=== PATIENT | male | born 1995 | race Caucasian/White ===

== ENCOUNTER 2023-09-13 11:27 | Emergency (ER) | payer SELFPAY ==
[2023-09-13] VITALS (7 sets, daily range): BP systolic 120–139; BP diastolic 77–92; PULSE 67–87; RESP 18–19; TEMP 36.6–36.9; O2SAT 97–99; BMI 29.2
--- NOTE | 2023-09-13 11:37 | ED_ITS ---
Discharge Plan Disposition Patient Disposition: Home, Self-Care Condition: Good Referrals Follow up/Referrals: Provider,Referral, MD [Primary Care Provider] - See instructions Activity Restrictions/Add. Instructions Additional Instructions/Restrictions: As we discussed, you have a small fracture of the end of your bone in your ankle called your tibia. Please wear the boot and do not bear weight on that foot. Please follow-up with the orthopedic surgeon. We have provided you a CD with the imaging. Please return with any new or worsening symptoms. Clinical Impressions Clinical Impression: Fracture of distal end of left tibia Instructions Patient Instructions: DI for Ankle Fracture, DI for Fracture Discharge ED Provider: Joel Torres General Adult HPI General Chief complaint: Extremity Injury, Lower Stated complaint: AO-pain and swelling in ankle Time Seen by Provider: 09/13/23 11:37 History of Present Illness HPI narrative: The patient presents with a chief complaint of pain in the left leg after falling down a steep hill. The patient reports having been at an [employer]nb and was coming out to see the kids when the fall occurred. The patient has experienced tingling in the toes, mainly on the inside of the foot, and describes it as pins and needles. The patient denies any back pain or head injury during the fall. The patient has a history of a previous injury to the same ankle, where the tendons were pulled off the bone, resulting in an avulsion fracture. The patient has not been able to bear weight on the injured leg since the fall. The patient has taken 1000 mg of Tylenol for pain management but has not requested any additional pain relief at this time. The patient has a medical history of hypertension and takes blood pressure medication daily. The patient is from out of town and was supposed to leave [place] on the day of the visit. Please note that above description of symptoms, in this electronic medical record under categorization of recalled from ER triage doctor by RN are reflective of an initial nursing assessment, however, is not reflective of my full history and physical exam that was personally taken and clarified. Consequentially, this preceding description of symptoms, which may include the patient's categorized chief complaint in the EMR, do not reflect my personal clinical impression, and the ultimate description of history of present illness and patient stated complaints should be deferred to this section of the note. Unless stated otherwise or congruent with this section of the note, additional signs, symptoms, or incongruence should be interpreted as inaccurate with my clinical impression. Related Data Allergies Allergy/AdvReac Type Severity Reaction Status Date / Time Penicillins Allergy Unknown Verified 09/13/23 12:03 [facility] Disclaimer: The information contained in this section may have been updated after the patient was seen, as this information can be updated by other users. Social History Smoking Status: Former smoker alcohol intake: former current occupational status: other Travel in the last 8 weeks: None ROS Obtained: Yes other As per HPI Physical Exam General General appearance: alert and in no apparent distress Head Head exam: atraumatic and normocephalic Eye Eye exam: Present normal appearance Neck Neck exam: Present normal inspection Chest Chest inspection: Present normal inspection and symmetric chest wall rise Respiratory Respiratory exam: Present normal lung sounds bilaterally; Absent respiratory distress Cardiovascular Cardiovascular exam: Present regular rate and normal rhythm Abdominal Exam Abdominal exam: Present soft Neurological Exam Neurological exam: Present alert and oriented X3 Psychiatric Psychiatric exam: Present normal affect and normal mood Skin Skin exam: Present warm and dry Medical Decision Making Medical Records Medical records reviewed: Yes I reviewed the patient's medical records. Dionisio Inquiry Pt receiving controlled substance: No Vital Signs: 09/13/23 11:29 09/13/23 11:43 09/13/23 11:45 Temperature 98.4 F Temperature Source Oral Pulse Rate 68 67 Pulse Rate [Right] 87 Respiratory Rate 19 Blood Pressure 130/79 127/83 Blood Pressure [Right Arm] 130/79 Blood Pressure Mean [Right Arm] 96 Blood Pressure Source [Right Arm] Automatic Cuff 02 Sat by Pulse Oximetry 98 97 99 Oxygen Delivery Method Room Air 09/13/23 12:00 09/13/23 12:15 09/13/23 12:30 Temperature Temperature Source Pulse Rate 80 76 80 Pulse Rate [Right] Respiratory Rate Blood Pressure 121/83 128/77 120/82 Blood Pressure [Right Arm] Blood Pressure Mean [Right Arm] Blood Pressure Source [Right Arm] 02 Sat by Pulse Oximetry 97 98 97 Oxygen Delivery Method 09/13/23 15:18 Temperature 98 F Temperature Source Pulse Rate 78 Pulse Rate [Right] Respiratory Rate 18 Blood Pressure 139/92 H Blood Pressure [Right Arm] Blood Pressure Mean [Right Arm] Blood Pressure Source [Right Arm] 02 Sat by Pulse Oximetry Oxygen Delivery Method Room Air Orders (Tests/Meds): ORDERS Category Date Time Status XR ankle LT min 3V Stat Exams 09/13/23 11:38 Completed XR foot LT min 3V Stat Exams 09/13/23 11:38 Completed XR tibia fibula LT 2V Stat Exams 09/13/23 11:38 Completed Medical Decision Narrative: Patient with history and exam per above presenting for evaluation of ankle pain Diagnoses considered include fracture, sprain, no clinical evidence of vascular injury, nerve injury, or compartment syndrome. ED workup and treatment included: ORDERS Category Date Time Status XR ankle LT min 3V Stat Exams 09/13/23 11:38 Completed XR foot LT min 3V Stat Exams 09/13/23 11:38 Completed XR tibia fibula LT 2V Stat Exams 09/13/23 11:38 Completed Imaging was independently visualized and interpreted by me, significant for distal tibial fracture. Please refer to radiology report for full details. My clinical impression at this time is most consistent with closed distal tibial fracture. As patient lives out of town, after shared decision making he will elect to follow-up with his home orthopedic surgeon. I discussed my clinical impression with patient and answered all questions. At this time, the evidence for any other entities in the differential is insufficient to warrant any further testing or ED observation. This was explained to the patient. The patient was advised that persistent or worsening symptoms require further evaluation. I confirmed the patient's understanding of this discussion. Critical Care Critical Care Time Critical Care Time: No
--- NOTE | 2023-09-13 11:38 | XR_ITS ---
FINAL REPORT CLINICAL HISTORY: Left ankle pain after fall COMPARISON: None FINDINGS: LEFT ANKLE Three views demonstrate a nondisplaced fracture of the posterior distal tibia. The visualized joint spaces are normally aligned. Lateral soft tissue swelling is noted. IMPRESSION: Nondisplaced fracture posterior distal tibia with soft tissue swelling. Reviewed, Interpreted and Dictated by Get Orellana III, MD Transcribed by Joellen Yap Authenticated and [facility]
--- NOTE | 2023-09-13 11:38 | XR_ITS ---
FINAL REPORT CLINICAL HISTORY: Left lower leg pain after fall COMPARISON: None FINDINGS: Two views of the left tibia/fibula were obtained. There is a nondisplaced fracture of the posterior distal tibia. The joint spaces are intact. Lateral soft tissue swelling is noted about the ankle. IMPRESSION: Nondisplaced fracture posterior distal tibia with soft tissue swelling. Reviewed, Interpreted and Dictated by Get Orellana III, MD Transcribed by Joellen Yap Authenticated and [facility]
--- NOTE | 2023-09-13 11:38 | XR_ITS ---
FINAL REPORT CLINICAL HISTORY: Left foot pain after fall COMPARISON: None FINDINGS: LEFT FOOT Three views of the left foot demonstrate no acute fracture or dislocation. The visualized joint spaces are normally aligned. The soft tissues are unremarkable. IMPRESSION: No acute bony abnormality. Reviewed, Interpreted and Dictated by Get Orellana III, MD Transcribed by Joellen Yap Authenticated and [facility]
== END 2023-09-13 15:32 | disposition home or self-care (01) ==
PROVIDERS: Emergency Provider Emergency Medicine
DX: S82.302A Unspecified fracture of lower end of left tibia, initial encounter for closed fracture (principal); M25.572 Pain in left ankle and joints of left foot; I10 Essential (primary) hypertension; W17.81XA Fall down embankment (hill), initial encounter
CPT/HCPCS: 73590; 73610; 73630; 99283